=== PATIENT | male | born 1990 | race Caucasian/White ===

== ENCOUNTER 2017-10-01 23:34 | Emergency (ER) | payer OTHER ==
[2017-10-02] MEDS: fentaNYL PF VIAL 100 MCG/2 ML VIAL IV ×2 (00:30→01:02)
[2017-10-02] MEDS: IV NORMAL SALINE 1000ML BAG 1,000 ML IV (00:56)
[2017-10-02] MEDS: ETOMIDATE 20 MG/10 ML VIAL. IV ×2 (01:03→01:05)
[2017-10-02] MEDS ORDERED: KETAMINE HCL 500 MG/10 ML VIAL. (01:09)
== END 2017-10-02 02:20 | disposition home or self-care (01) ==
LOC: ER 23:34
DX: S43.005A Unspecified dislocation of left shoulder joint, initial encounter (principal); W03.XXXA Other fall on same level due to collision with another person, initial encounter; Y93.72 Activity, wrestling; Y99.8 Other external cause status; Y92.89 Other specified places as the place of occurrence of the external cause
CPT/HCPCS: 23650; 73020; 73030; 99152; 99285-25; J3010; J7030